=== PATIENT | female | born 1965 | race Caucasian/White ===

== ENCOUNTER 2018-04-17 05:45 | Day surgery (SDC) | payer OTHER ==
[~2018-04-17] VITALS: Ht 154.9 cm; Wt 63.5 kg
[2018-04-17] MEDS ORDERED: CEFAZOLIN SOD 1 GM/ ISO 50 ML PREMIX IV ONE (07:00)
[2018-04-17] MEDS ORDERED: LR 1,000 ML IV SCH (09:08)
[2018-04-17] MEDS ORDERED: ONDANSETRON HCL 4 MG/2 ML VIAL IVP PRN ×2 (09:15→10:00)
[2018-04-17] MEDS ORDERED: MORPHINE 4 MG/ML INJ. SYRINGE IVP PRN ×3 (09:15)
[2018-04-17] MEDS ORDERED: OXYCODONE/ACETAMINOPHEN 5-325 TABLET PO PRN ×2 (10:00)
[2018-04-17] MEDS ORDERED: HYDROcodone/ACETAMIN 5-325 MG TAB (NORCO/ VICODIN) PO PRN (10:00)
[2018-04-17] MEDS ORDERED: ONDANSETRON HCL 4 MG/2 ML VIAL ONE (11:37)
[2018-04-17] MEDS ORDERED: HYDROcodone/ACETAMIN 5-325 MG TAB (NORCO/ VICODIN) ONE ×2 (11:48→13:21)
[2018-04-17] MEDS: SIMETHICONE 80 MG TAB.CHEW PO SCH ×3 (13:00→20:30)
[2018-04-17] MEDS ORDERED: KETOROLAC TROMETHAMINE 30 MG VIAL IVP ONE (13:00)
[2018-04-17] MEDS ORDERED: HYDROcodone/ACETAMIN 10-325 MG TAB ONE (13:19)
[2018-04-17] MEDS ORDERED: KETOROLAC TROMETHAMINE 30 MG VIAL ONE (13:34)
--- NOTE | 2018-04-17 14:00 | NUR ---
ADMISSION NOTE Received patient from OR via [facility]. Patient admitted with diagnosis of . Patient is awake, alert, oriented X 4. Patient oriented to hospital room, call light, toileting, pain management and safety-teach back done. Patient informed that their room number is 122B. Personal belongings checked and Belongings List documented. at bedside. Call light within reach.
[2018-04-17 14:27] VITALS: BP_SYST 123
--- NOTE | 2018-04-17 14:35 | NUR ---
Non-functioning On-Q pump Kari from OR stated MD aware than On-Q pump is non-functional at this time/occluded, said stated he will make round tonight to check pump
[2018-04-17] MEDS ORDERED: Z-PACK PO (14:39)
[2018-04-17 16:00] VITALS: BP_SYST 112
--- NOTE | 2018-04-17 16:20 | NUR ---
Incentive Spirometer/Pain Med Teaching patient was able to reach 2500 mL on incentive spirometer, patient stated pain is tolerable at this time, educated her on pain management, verbalized understanding, at bedside, safety precautions remain in place, bedside table and call light left within reach, will continue to monitor patient
--- NOTE | 2018-04-17 17:10 | NUR ---
Percocet administered per pain scale, educated patient regarding med, verbalized understanding, tolerated well, at bedside, safety precautions in place, will continue to monitor
--- NOTE | 2018-04-17 18:39 | NUR ---
Closing Note patient resting in bed, HOB elevated, pain is tolerable at this time, breathing unlabored on room air, IV site saline locked, at bedside, SCDs on for DVT prophylaxis, safety precautions remain in place, bedside table and call light left within reach, will endorse to medical support specialist nurse
--- NOTE | 2018-04-17 18:56 | NUR ---
[facility] US Spoke with Dr. Ramos/Trina stated Bryant may be discontinued if patient moving around and ambulatory, but if she is in bed then leave bryant in, will endorse to robotics technologist nurse
--- NOTE | 2018-04-17 19:40 | NUR ---
OPENING NOTE RECEIVED PT AND REPORT FROM DAY SHIFT NURSE. PT IS SITTING UP AWAKE IN BED. PT ABLE TO MAKE NEEDS KNOWN. PT DENIES PAIN AT THIS TIME. IV IS INTACT AND PATENT. PT ON ROOM AIR. INCISION SITES ARE DRY CLEAN AND INTACT. ON Q PUMP IS OCCLUDED PER REPORT FROM DAY SHIFT. INCENTIVE SPIROMETER AT BEDSIDE, PT CAN REACH 2500. FALL AND SAFETY PRECAUTIONS IN PLACE. BED LOCKED IN LOWEST POSITION. BED ALARM ON. CALL LIGHT WITH PT.
[2018-04-17 20:00] VITALS: BP_SYST 136
--- NOTE | 2018-04-17 20:30 | NUR ---
MEDICATION ADMINISTRATION ADMINISTERED MEDICATION PER ORDERS. EDUCATED PT, PT VERBALIZED UNDERSTANDING. PROVIDED PT WITH JELLO AND ICE CHIPS. WILL CONTINUE TO MONITOR.
--- NOTE | 2018-04-17 23:15 | NUR ---
DR. WALDEN AT BEDSIDE. DR WALDEN AT BEDSIDE. DR WALDEN STATES THAT PATIENT CAN DISCHARGE WHENEVER SHE IS READY. DC ORDER FOR AM.
[2018-04-18 00:04] VITALS: BP_SYST 120
[2018-04-18 00:12] VITALS: BP_SYST 120
--- NOTE | 2018-04-18 00:40 | NUR ---
ROUNDING NOTE PT IS SLEEPING IN BED. NO S/S OF DISTRESS OR DISCOMFORT. CALL LIGHT WITH PT.
--- NOTE | 2018-04-18 02:10 | NUR ---
PT OUT OF BED ASSISTED PT OUT OF BED. PT REPORTS PAIN TO ABDOMEN AND FEELING VERY WEAK. PT DOES NOT WANT PAIN MEDS PRIOR TO WALKING. PT WALKED SHORT DISTANCE IN ROOM. ASSISTED BACK IN BED.
--- NOTE | 2018-04-18 02:19 | NUR ---
PRN PAIN MED ADMINISTERED PRN PAIN MEDICATION PER ORDERS. PT RESTING IN BED. CALL LIGHT WITH PT. WILL CONTINUE TO MONITOR.
--- NOTE | 2018-04-18 04:35 | NUR ---
ROUNDING NOTE PT IS SLEEPING. NO S/S OF DISTRESS OR DISCOMFORT. CALL LIGHT WITH PT. WILL CONTINUE TO MONITOR.
--- NOTE | 2018-04-18 05:20 | NUR ---
OUT OF BED/PLATA OUT ASSISTED PT TO WALK. PT WALKED DOWN [place] AND BACK. DENIES ANY DIZZINESS. REMOVED PLATA CATHETER. ENCOURAGED PT TO CALL WHEN NEEDING TO URINATE. WILL CONTINUE TO MONITOR.
--- NOTE | 2018-04-18 06:41 | NUR ---
CLOSING NOTE WILL ENDORSE CARE AND REPORT TO DAY SHIFT NURSE. PT IS SLEEPING IN BED AT THIS TIME. NO S/S OF DISTRESS OR DISCOMFORT. ALL NEEDS MET THROUGHOUT SHIFT. PT IN STABLE CONDITION. NO SIGNIFICANT CHANGES TO NOTE DURING SHIFT. CALL LIGHT WITH PT. PT MEDICATED FOR PAIN ONCE ON SHIFT. WILL CONTINUE TO MONITOR.
--- NOTE | 2018-04-18 07:50 | NUR ---
OPENING NOTES, RECEIVED PT IN BED, PT IS AAOX4, DENIES PAIN, NO SOB, NO DISTRESS. ABDOMINAL SURGICAL SITES COVERED WITH STERISRIPS NO BLEEDING. Q PUMP NOTED, IT IS INTACT BUT PER PT IT WAS NOT WORKING SINCE SHE WAS IN RECOVERY, MD WAS AWARE. IV SL LOCK INTACT AND PATENT. NO S/S OF INFILTRATION . SAFETY PRECAUTION ON PLACE. CALL LIGHT IN REACH. BED IN LOW POSITION. WILL CONT TO MONITOR.
--- NOTE | 2018-04-18 08:00 | NUR ---
PT ASSISTED TO THE BATHROOM FOR VOIDING. PT VOIDED ( S/SP PLATA CATH DC'D) PER PT.
--- NOTE | 2018-04-18 09:32 | NUR ---
Nutrition Update Robert Scale 17 noted. Pt admitted for family Hx of malignant neoplasm of breast. Diet: regular BMI: 26.5 kg/m2 RD to follow per nutrition care standards.
[2018-04-18] MEDS: SIMETHICONE 80 MG TAB.CHEW PO SCH (09:39)
--- NOTE | 2018-04-18 10:20 | NUR ---
PAGED PAGED ROYAL SOMMER AT [phone] SPOKE WITH
[2018-04-18 10:27] VITALS: BP_SYST 125
--- NOTE | 2018-04-18 11:26 | NUR ---
PT'S Q PUMP DISCONTINUED ASEPTICALLY ORDERED WITH HR INTERNLIGIA Schmidt PT TOLERATED WELL. NO BLEED AFTER REMOVAL. MEDICATION DISCARDED INTO THE DESTROYER CANISTER.
--- NOTE | 2018-04-18 12:31 | NUR ---
D/C Patient Patient given medication reconciliation form and D/C instructions. Exit Care provided. Patient verbalized understanding. MD discussed with patient the results and treatment provided. Ambulatory with assistance , gait still a little unstable due to pain when ambulating. Patient in stable condition, ID band removed. IV catheter removed, intact and dressing applied, no active bleeding. No Rx given. Patient educated on pain management. All belongings sent with patient.
== END 2018-04-18 12:15 | disposition home or self-care (01) ==
LOC: SMU 05:45 → SDS 05:45 → SMU 13:45 → SDS 04-18 12:15
PROVIDERS: ATTEND Specialist
DX: C56.9 Malignant neoplasm of unspecified ovary (principal); C50.919 Malignant neoplasm of unspecified site of unspecified female breast; D64.9 Anemia, unspecified; Z98.890 Other specified postprocedural states; Z87.42 Personal history of other diseases of the female genital tract; Z79.899 Other long term (current) drug therapy; Z15.02 Genetic susceptibility to malignant neoplasm of ovary; Z78.0 Asymptomatic menopausal state; Z15.01 Genetic susceptibility to malignant neoplasm of breast; Z88.2 Allergy status to sulfonamides
CPT/HCPCS: 58552; 88305; 88307; C1727; J0690; J1885; J2405; J7120; E0190